=== PATIENT | female | born 1980 | race Caucasian/White ===

== ENCOUNTER 2018-01-31 11:39 | Emergency (ER) | payer BC ==
[2018-01-31 12:52] VITALS: BP 131/94
--- NOTE | 2018-01-31 13:23 | UC ---
Lower Extremity/Ankle HPI - HPI Summary HPI Summary: Patient is complaining of pain to the top of her left foot. She describes it as a "hot poker" or burning type pain that comes and goes. She states that it occurs at random. She denies any history of injury or swelling. There is no associated fever and she denies any associated joint pains. When asked about footwear, she admits that she wears flat sandals or slippers. - History of Current Complaint Chief Complaint: UCLowerExtremity Stated Complaint: LEFT FOOT COMPLAINT Time Seen by Provider: 01/31/18 12:47 Hx Obtained From: Patient Hx Last Menstrual Period: 10/26/15 Pain Intensity: 0 Aggravating Factor(s): Nothing Alleviating Factor(s): Nothing Able to Bear Weight: Yes - Risk Factors Gout Risk Factors: Negative Septic Arthritis Risk Factor: Negative - Allergies/Home Medications Allergies/Adverse Reactions: Allergies Allergy/AdvReac Type Severity Reaction Status Date / Time No Known Allergies Allergy Verified 01/31/18 12:50 PMH/Surg Hx/FS Hx/Imm Hx Previously Healthy: Yes Other History Of: Negative For: HIV, Hepatitis B, Hepatitis C - Surgical History Surgical History: Yes Surgery Procedure, Year, and Place: gallbladder removed - Family History Known Family History: Positive: None Negative: Cardiac Disease, Hypertension - Social History Lives: With Family Alcohol Use: Weekly Alcohol Amount: 2-3 times a week Substance Use Type: None Smoking Status (MU): Light Every Day Tobacco Smoker Type: Cigarettes Amount Used/How Often: 1/2 ppd Have You Smoked in the Last Year: Yes When Did the Patient Quit Smoking/Using Tobacco: May.09 Household Exposure Type: Cigarettes - Immunization History Most Recent Influenza Vaccination: none Vaccination Up to Date: Yes Review of Systems Constitutional: Negative Skin: Negative Eyes: Negative ENT: Negative Respiratory: Negative Cardiovascular: Negative Gastrointestinal: Negative Genitourinary: Negative Motor: Negative Neurovascular: Negative Musculoskeletal: Negative Neurological: Other - Sharp pain stop left foot. Psychological: Negative Is Patient Immunocompromised?: No All Other Systems Reviewed And Are Negative: Yes Physical Exam Triage Information Reviewed: Yes Appearance: Well-Appearing Vital Signs: Initial Vital Signs Temp 98.3 F 01/31/18 12:47 Pulse 76 01/31/18 12:47 Resp 18 01/31/18 12:47 BP 131/94 01/31/18 12:47 Pulse Ox 100 01/31/18 12:47 Vital Signs Reviewed: Yes Eyes: Positive: Conjunctiva Clear ENT: Positive: Normal ENT inspection Neck: Positive: Supple, Nontender, No Lymphadenopathy Respiratory: Positive: Lungs clear, Normal breath sounds Cardiovascular: Positive: RRR, No Murmur Abdomen Description: Positive: Nontender, No Organomegaly, Soft Bowel Sounds: Positive: Present Musculoskeletal: Positive: Other: - LLE: No gross deformity swelling or discoloration. Hip, knee, Achilles tendon and ankle are nontender to palpation. Palpation of the left dorsal foot causes intermittent sharp pains but there is no crepitation or instability and the rest of the foot is nontender. The foot has gross sensorivascular motor function. She is noted to have high arches. The left lower extremity compared to the right shows that the legs are symmetrical. Neurological: Positive: Alert Psychological: Positive: Age Appropriate Behavior Skin Exam: Normal Skin: Negative: rashes Lower Extremity Course/Dx - Course Course Of Treatment: No concern for fracture, dislocation or septic joint. Given that the pain is episodic and is a hot poker and sharp in nature feels that this is a nerve type pain. Patient's footwear lacks all support thus we' ll start by having her discontinue use of her flat sandals and slippers and start wearing her sneakers that she include good arch support. In addition, going to start her on a routine anti-inflammatory and give her an orthopedic follow-up. At this time an x-ray of her foot would not blade changer given there is no injury this no x-rays done. Patient denies history of hypertension think the blood pressures visit related. She is to have her blood pressure rechecked on follow-up visit. - Differential Dx/Diagnosis Provider Diagnoses: Acute left dorsal foot pain-nontraumatic Discharge - Sign-Out/Discharge Documenting (check all that apply): Patient Departure All imaging exams completed and their final reports reviewed: No Studies - Discharge Plan Condition: Stable Disposition: HOME Prescriptions: Naproxen [Naprosyn 500 mg tab] 500 mg PO BID 7 Days #14 tablet Patient Education Materials: Foot Sprain (ED) Referrals: Echo Mejía PA [Primary Care Provider] - If Needed Kaden Daniels MD [Medical Doctor] - 7 Days Additional Instructions: DIAGNOSIS: ACUTE DORSAL FOOT PAIN-L STOP WEARING SANDALS AND SLIPPERS. WEAR SNEAKERS WITH GOOD FOOT/ARCH SUPPORT. - Billing Disposition and Condition Condition: STABLE Disposition: Home
== END 2018-01-31 13:42 | disposition home or self-care (01) ==
LOC: UCCORT 11:39
DX: M79.672 Pain in left foot (principal); F17.210 Nicotine dependence, cigarettes, uncomplicated
CPT/HCPCS: 99212; G0463